=== PATIENT | male | born 1955 | race African-American/Black ===

== ENCOUNTER 2018-03-23 21:20 | Emergency (ER) | payer MEDICAID, OTHER ==
[~2018-03-23] VITALS: Ht 185.4 cm; Wt 83.9 kg
[~2018-03-23 21:20] MED LIST: NORCO 5-325 TA1 EACH ORAL
[2018-03-23] MEDS ORDERED: PANTOPRAZOLE SO40 MG ORAL (21:25)
--- NOTE | 2018-03-23 21:29 | Emergency Room Report ---
History of Present Illness General Chief Complaint: Abdominal Pain Source: Patient, Medical Record Present Illness HPI Is a 62-year-old male who presents with chief point abdominal pain and vomiting. This is an ongoing issue for many years. He's been in the hospital for and workup is unremarkable. He was at a hospital for weeks ago. He called 911 because abdominal pain with vomiting. He said he vomited up his blood pressure medication tonight. Denies any alcohol or drug use. Denies any fever or chills. Vomiting is nonbloody nonbilious. No diarrhea. Pain is crampy and sharp. Epigastric area. 9 out of 10. Allergies: Coded Allergies: No Known Allergies (Unverified , 03/22/14) Patient History Past Medical History: see triage record, old chart reviewed, HTN, COPD Past Surgical History: other Pertinent Family History: none Social History: Denies: smoking Immunizations: other Reviewed Nursing Documentation: PMH: Agreed; PSxH: Agreed Nursing Documentation-PMH Hx Cardiac Problems: No - ARTHRITIS Hx Gastrointestinal Problems: Yes - Acid reflux Review of Systems Eye: Denies: eye pain, blurred vision ENT: Denies: ear pain, nose congestion, throat swelling Respiratory: Denies: cough, shortness of breath Cardiovascular: Denies: chest pain, palpitations Gastrointestinal: Reports: abdominal pain, nausea, vomiting; Denies: diarrhea Musculoskeletal: Denies: back pain, joint pain Skin: Denies: rash Neurological: Denies: headache, numbness Endocrine: Denies: increased thirst, increased urine Hematologic/Lymphatic: Denies: easy bruising All Other Systems: negative except mentioned in HPI Physical Exam Vital Signs Date Time Temp Pulse Resp B/P (MAP) Pulse Ox O2 Delivery O2 Flow Rate FiO2 03/23/18 21:22 98.2 69 14 179/118 100 Room Air 98.2 vitals with high blood pressure Sp02 EP Interpretation: reviewed, normal General Appearance: well appearing, no apparent distress, alert Head: normocephalic, atraumatic Eyes: bilateral eye PERRL, bilateral eye EOMI ENT: hearing grossly normal, normal pharynx Neck: full range of motion, supple, no meningismus Respiratory: chest non-tender, lungs clear, normal breath sounds Cardiovascular #1: regular rate, rhythm, no murmur Gastrointestinal: normal bowel sounds, no mass, no organomegaly, no bruit, non- distended, tenderness - mild, epigastric Musculoskeletal: back normal, gait/station normal, normal range of motion Psychiatric: mood/affect normal Skin: warm/dry Medical Decision Making Diagnostic Impression: Primary Impression: Duodenal ulcer, perforated Additional Impressions: Peptic ulcer disease Cocaine abuse Hypertension Qualified Codes: I10 - Essential (primary) hypertension Anemia Qualified Codes: D64.9 - Anemia, unspecified ER Course patient presents with abdominal pain. He said he has a history of peptic ulcer disease and has been to the ER multiple time. He had endoscopy about 4 months ago which confirm this. His pain worsened in the last week. This patient after he eats. CT scan showed a contain perforated duodenal ulcer. He is otherwise hemodynamically stable. He received Protonix her ready. I added Zosyn here. We'll put an NG tube. I discussed the case with Dr. Rooney at [facility] [place]. He accepted the patient for transfer. Lab Results Impression labs unremarkable Rhythm Strip Diag. Results Rhythm Strip Time: 01:12 EP Interpretation: yes Rate: 80 Rhythm: NSR, no PVC's, no ectopy CT/MRI/US Diagnostic Results CT/MRI/US Diagnostic Results : Imaging Test Ordered: CT abdomen and pelvis Impression Read by radiologist. Inflammatory changes involving the distal gastric antrum and proximal duodenum. 1.3 cm x 2.2 cm loculated fluid and gas collection just medial to the duodenal bulb suspicious for contained perforated ulcer. Last Vital Signs Date Time Temp Pulse Resp B/P (MAP) Pulse Ox O2 Delivery O2 Flow Rate FiO2 03/23/18 21:22 98.2 69 14 179/118 100 Room Air 98.2 Status: improved [facility] Condition: Stable DHARA EAST M.D. Mar 23, 2018 21:29
[2018-03-23 21:30] VITALS: BP 192/107
[2018-03-23] MEDS ORDERED: Mylanta II UD 30ml ORAL ONE (21:30)
[2018-03-23] MEDS ORDERED: Pantoprazole Inj IVP ONE (21:30)
[2018-03-23 22:00] LABS: BASOPHILS % (AUTO) 0.9 % (0.0-2.0); EOSINOPHILS % (AUTO) 7.1 % (0.0-3.0); HEMATOCRIT 34.1 % (42.0-52.0); HEMOGLOBIN 9.8 G/DL (14.2-18.0); LYMPHOCYTES % (AUTO) 11.7 % (20.0-45.0); MEAN CORPUSCULAR VOLUME 64 FL (80-99); MONOCYTES % (AUTO) 6.3 % (1.0-10.0); NEUTROPHILS % (AUTO) 74.1 % (45.0-75.0); PLATELET COUNT 235 K/UL (150-450); RED BLOOD COUNT 5.35 M/UL (4.70-6.10); RED CELL DISTRIBUTION WIDTH 17.8 % (11.6-14.8); WHITE BLOOD COUNT 9.4 K/UL (4.8-10.8)
[2018-03-23] MEDS ORDERED: Morphine Sulfate 4mg/ml Inj (IV USE ONLY) IVP ONE (22:00)
[2018-03-23 22:12] LABS: ANION GAP 8 mmol/L (5-15); BLOOD UREA NITROGEN 11 mg/dL (7-18); CALCIUM 9.4 MG/DL (8.5-10.1); CARBON DIOXIDE 31 MMOL/L (21-32); CHLORIDE 101 MMOL/L (98-107); CREATININE 1.5 MG/DL (0.55-1.30); POTASSIUM 3.3 MMOL/L (3.5-5.1); SODIUM 140 MMOL/L (136-145)
[2018-03-23 22:16] LABS: ALANINE AMINOTRANSFERASE 19 U/L (12-78); ALBUMIN 3.6 G/DL (3.4-5.0); ALBUMIN/GLOBULIN RATIO 0.9 (1.0-2.7); ALKALINE PHOSPHATASE 74 U/L (46-116); ASPARTATE AMINO TRANSFERASE 13 U/L (15-37); BILIRUBIN,TOTAL 0.3 MG/DL (0.2-1.0)
[2018-03-23] MEDS ORDERED: Isovue-300 100ml vial INJ PRN (23:00)
[2018-03-23 23:19] LABS: APPEARANCE,URINE CLEAR; BILIRUBIN, URINE NEGATIVE (NEGATIVE); COLOR,URINE PALE YELLOW; GLUCOSE, URINE (UA) NEGATIVE (NEGATIVE); KETONES,URINE 1+ (NEGATIVE); LEUKOCYTE ESTERASE ,URINE NEGATIVE (NEGATIVE); NITRITE,URINE NEGATIVE (NEGATIVE); PH,URINE 8 (4.5-8.0); PROTEIN,URINE NEGATIVE (NEGATIVE); UROBILINOGEN,URINE NORMAL MG/DL (0.0-1.0)
[2018-03-23 23:35] VITALS: BP 164/98
[2018-03-24] MEDS ORDERED: IBUPROFEN600 MG ORAL (00:25)
[2018-03-24] MEDS ORDERED: Piperacillin/Tazobactam 3.375 GM in NS 110 ML IVPB ONE (01:15)
[2018-03-24] MEDS ORDERED: Morphine Sulfate 10mg/ml Inj IVP ONE (01:15)
[2018-03-24] MEDS ORDERED: Morphine Sulfate 4mg/ml Inj (IV USE ONLY) ONE (01:25)
[2018-03-24] MEDS ORDERED: Zosyn 3.375gm inj ONE (01:27)
[2018-03-24] MEDS ORDERED: Morphine Sulfate 10mg/ml Inj ONE (01:44)
[2018-03-24 02:03] VITALS: BP 148/88
[2018-03-24 03:00] VITALS: BP 133/67
--- NOTE | 2018-03-24 09:32 | Diagnostic Imaging Report ---
Indication: Abdominal pain Technique: Noncontrast CT of the abdomen and pelvis utilizing automated exposure control. Axial, sagittal and coronal reformats presented. CT dose: Total DLP 623.75 mGycm; CTDI vol 11.83 mGy Comparison: None Findings: Please note that evaluation of the abdominal and pelvic viscera and vascular structures is limited without the use of intravenous and oral contrast. Within these limitations the following observations are made: Dependent atelectasis noted in the lung bases. Heart size within normal limits. No pericardial effusion. There is abnormal soft tissue density with inflammatory changes involving the distal gastric antrum and proximal duodenum with colon wall thickening and surrounding inflammatory change. This raises question for peptic ulcer disease with antral gastritis and duodenitis. There is approximately 1.3 x 2.2 cm collection of fluid and gas just medial to limit one normal bulb suspicious for possible area of perforated ulcer or contained perforation. Evaluation is limited without contrast. Otherwise, no free intraperitoneal air. No evidence of small bowel obstruction. Appendix is normal. There are scattered colonic diverticula without evidence to suggest acute diverticulitis. There is cholelithiasis without evidence to suggest an acute cholecystitis. Noncontrast evaluation of the liver, spleen and pancreas grossly unremarkable. There is bilateral adrenal hyperplasia. Probable cyst in the lower pole the left kidney. No hydronephrosis bilaterally. There is apparent thickening of the bladder wall which may be exaggerated by underdistention. Possibility of a cystitis is not excluded. There are atherosclerotic calcifications of a normal caliber aorta and its branches. There are degenerative changes in the spine. No acute osseous abnormality identified. There are sclerotic foci in the pelvic bones most likely representing bone islands. Additionally there are some well-circumscribed osteolytic foci in the pelvic bones which may be benign in etiology however bone scan recommended for further evaluation. IMPRESSION: Limited exam without intravenous and oral contrast. Within these limitations: * Minimal thickening and inflammatory change involving the distal gastric antrum and proximal duodenum as detailed above raising question for peptic ulcer disease. Small collection of fluid and gas just medial to the duodenal bulb possibly related to perforated ulcer contained perforation. Correlate clinically. Consider endoscopy. No evidence of free intraperitoneal air at this time. * Cholelithiasis without CT evidence of cholecystitis. * Diverticulosis without evidence of diverticulitis. * Apparent bladder wall thickening possibly exaggerated by under distention. Possibility of a cystitis not excluded. Correlate with urinalysis. * Few well-circumscribed osteolytic lesions in the pelvic bones may be benign etiology however bone scan recommended for further evaluation. This is slightly discrepant from the preliminary report regarding the bony findings. Patient has been transferred to a different hospital between the time of the preliminary report and final report. Attempts being made by radiology administration to contact the treating physician at the hospital where the patient was transferred to. The CT scanner at [facility] is accredited by the [employer] and the scans are performed using protocols designed to limit radiation exposure to as low as reasonably achievable to attain images of sufficient resolution adequate for diagnostic evaluation.
== END 2018-03-24 03:00 | disposition short-term general hospital (02) ==
LOC: EDBD 21:20 → EDUNIT# 21:20 → EMR 21:35
DX: K26.5 Chronic or unspecified duodenal ulcer with perforation (principal); K27.9 Peptic ulcer, site unspecified, unspecified as acute or chronic, without hemorrhage or perforation; F14.10 Cocaine abuse, uncomplicated; I10 Essential (primary) hypertension; D64.9 Anemia, unspecified; K80.20 Calculus of gallbladder without cholecystitis without obstruction; K57.30 Diverticulosis of large intestine without perforation or abscess without bleeding; M89.9 Disorder of bone, unspecified
CPT/HCPCS: 36415; 74176; 80053; 80307; 81003; 83690; 85025; 96361; 96365; 96375; 96376; 99284; C9113; J0360; J2270; J2405; J2543

== ENCOUNTER 2020-02-06 03:08 | Emergency (ER) | payer SELFPAY ==
[~2020-02-06] VITALS: Ht 185.4 cm; Wt 90.7 kg
[~2020-02-06 03:08] MED LIST changes: +IBUPROFEN600 MG ORAL; +PANTOPRAZOLE SO40 MG ORAL
[2020-02-06 03:20] VITALS: BP 130/80
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
[2020-02-06] MEDS ORDERED: Morphine Sulfate 2mg/ml Inj(IV/IM USE ONLY) IM ONE (03:30)
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
[2020-02-06] MEDS ORDERED: AUGMENTIN 875-1 EAC1 ORAL (04:14)
[2020-02-06] MEDS ORDERED: NORCO 5-325 TA1 EAC1 ORAL (04:14)
[2020-02-06 04:20] VITALS: BP 128/86
--- NOTE | 2020-02-06 04:20 | NUR ---
ER DISCHARGE NOTE: Patient is cleared to be discharged per ERMD, pt is aox4, on room air, with stable vital signs. pt was given dc and prescription instructions, pt was able to verbalize understanding, pt id band removed. pt is able to ambulate with steady gait. pt took all belongings.
== END 2020-02-06 04:20 | disposition home or self-care (01) ==
LOC: EDBD 03:08 → EDUNIT# 03:08 → EMR 04:00
DX: G89.18 Other acute postprocedural pain (principal); R68.84 Jaw pain; J44.9 Chronic obstructive pulmonary disease, unspecified; M19.90 Unspecified osteoarthritis, unspecified site; I10 Essential (primary) hypertension; K21.9 Gastro-esophageal reflux disease without esophagitis
CPT/HCPCS: 96372; 99283; J2270